=== PATIENT | female | born 2005 | race Caucasian/White ===

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

== ENCOUNTER 2024-10-26 15:11 | Emergency (ER) | payer MEDICAID ==
[~2024-10-26] VITALS: Ht 172.7 cm; Wt 41.7 kg
--- NOTE | 2024-10-26 15:42 | ED.PDOC ---
SOB-HPI HPI Comments HPI: Poor Historian. Drug allergy 18-year-old female presents to the emergency department for evaluation of shortness of breath for two days with associated upper back discomfort and bilateral shoulder discomfort. She tried her inhaler at home without significant improvement. She has been taking NyQuil as well and DayQuil without significant improvement. Denies any fever but she complains of chills. Dad is sick with similar symptoms. Past Medcial History: Asthma Past Surgical History: Denies any No known REVIEW OF SYSTEMS: CONSTITUTIONAL: Denies acute: fever, diaphoresis, HEAD: Denies acute: headache, photophobia Eyes: Denies acute: Double vision, vision loss, eye pain, eye discharge. EARS: Denies acute: tinnitus, hearing loss, ear discharge, ear pain, THROAT: Denies acute: sore throat, swelling, difficulty swallowing , pain with swallowing, change in voice. NECK: Denies acute: neck pain, neck swelling, stiff neck. HEART: Denies acute : chest pain, palpitations, LUNGS: Denies acute: wheezing, hemoptysis ABDOMEN: Denies acute: abdominal pain, Nausea, Vomiting, diarrhea, melena , hematemesis, hematochezia SKIN: Denies acute: rash, redness, lesions, itchiness. EXTREMITIES: Denies acute: calf pain, numbness, tingling, weakness, denies pain in extremity. Denies acute: Low back pain. Neuro: Denies acute: focal neurological deficit, motor or sensory focal neurological deficit, tremors, seizure like activity, confusion, dizziness, change in mental status, loss of bowel or bladder function, cauda equina like symptoms. : Denies acute: dysuria, hematuria, flank pain, increase in urinary frequency. PSYCH: Denies acute: hallucination, suicidal ideation, homicidal ideation. FEMALE: Denies acute: abnormal vaginal bleeding, foul odor, unusual discharge. PHYSICAL EXAM: General: no acute distress, awake and alert. Head: normocephalic, atraumatic. Neck: supple, trachea is midline, no swelling. Throat: Normal phonation. Eyes:, no erythema, no purulent discharge, no proptosis, no icterus. Heart: regular tachycardic, no significant murmur appreciated. Lungs: Mild respiratory distress, Able to speak in full sentences. No wheezing, minimal bilateral rhonchi, no crackles. No stridors Clear to auscultation bilaterally. Abdomen: non tender to palpation, non distended, soft, no guarding, no rebound, + bowel sounds. Neuro: Awake, Alert, oriented to name, self, situation, follows commands GCS=15. Speech is normal. Skin: no petechia, no purpura, no cyanosis, non-pale, not jaundice. Lower extremities: --no - Pitting edema no deformity, no focal swelling, no calf TTP. Makes eye contact. moves all four extremities. Face: no apparent facial droop. Ambulating in the ED independently. No nuchal rigidity, Kernig's sign, Brudzinski's sign, no meningeal signs. Chief Complaint: Flu like Time Seen by MD: 15:31 Reviewed notes: Nurses Notes, Allergies Information Source: Patient Family History Family History: Unknown Social History Smoker: Non-Smoker Alcohol: Denies ETOH Use Drugs: Denies Drug Use Lives In: Home X-Ray, Labs, Meds, VS Vital Signs Date Time Temp Pulse Resp B/P (MAP) Pulse Ox O2 Delivery O2 Flow Rate FiO2 10/26/24 16:16 Room Air* 0 21 10/26/24 16:08 102 17 95 Room Air 10/26/24 16:08 98.1 102 17 109/79 (89) 95 98.1 10/26/24 15:46 19 96 Room Air* 0 21 10/26/24 15:32 98.2 120 19 123/92 (102) 96 Lab Test 10/26/24 17:13 10/26/24 16:18 10/26/24 16:00 10/26/24 15:50 Range/Units Troponin I High Sensitivity < 3 L < 3 L </=34 ng/L Urine Color Light-yellow Yellow Urine Clarity Clear Clear Urine pH 6.0 5.0-9.0 Urine Specific [place] 1.017 1.001-1.035 Urine Protein Trace H Negative Urine Ketones 3+ H Negative Urine Blood Negative Negative /uL Urine Nitrite Negative Negative Urine Bilirubin Negative Negative Urine Urobilinogen Normal Negative mg/dL Urine Leukocyte Esterase Negative Negative /uL Urine RBC 1 0 - 4 /hpf Urine WBC 1 0 - 5 /hpf Urine Squamous Epithelial Cells Few <5 /hpf Urine Bacteria Few H None Seen /hpf Urine Mucus Few None Seen Urine Glucose Normal Normal mg/dL Urine Test Negative Negative White Blood Count 10.9 H 4.4-10.8 10^3/uL Red Blood Count 4.59 4.0-5.20 10^6/uL Hemoglobin 15.2 12.2-16.2 g/dL Hematocrit 43.8 36.0-46.0 % Mean Corpuscular Volume 95.5 80.0-100.0 fL Mean Corpuscular Hemoglobin 33.1 H 28.0-32.0 pg Mean Corpuscular Hemoglobin Concent 34.7 32.0-36.0 g/dL Red Cell Distribution Width 13.2 11.8-14.3 % Platelet Count 259 140-450 10^3/uL Mean Platelet Volume 9.1 6.9-10.8 fL Neutrophils (%) (Auto) 86.5 H 37.0-80.0 % Lymphocytes (%) (Auto) 5.7 L 10.0-50.0 % Monocytes (%) (Auto) 7.5 0.0-12.0 % Eosinophils (%) (Auto) 0.1 0.0-7.0 % Basophils (%) (Auto) 0.2 0.0-2.0 % Neutrophils # (Auto) 9.4 H 1.6-8.6 10 ^3/uL Lymphocytes # (Auto) 0.6 0.4-5.4 10 ^3/uL Monocytes # (Auto) 0.8 0-1.3 10 ^3/uL Eosinophils # (Auto) 0 0-0.8 10 ^3/uL Basophils # (Auto) 0 0-0.2 10 ^3/uL Nucleated Red Blood Cells 0.0 % D-Dimer, Quantitative < 0.19 0.0-0.49 mg/L FEU Sodium Level 137 136-145 mmol/L Potassium Level 4.1 3.5-5.1 mmol/L Chloride Level 105 98-107 mmol/L Carbon Dioxide Level 23 20-31 mmol/L Anion Gap 9 5-15 Blood Urea Nitrogen 7 L 9-23 mg/dL Creatinine 0.89 0.550-1.02 mg/dL Glomerular Filtration Rate Calc 95 >90 mL/min BUN/Creatinine Ratio 7.9 L 10.0-20.0 Serum Glucose 105 74-106 mg/dL Lactic Acid Level 1.9 0.4-2.0 mmol/L Calcium Level 10.4 8.7-10.4 mg/dL Magnesium Level 1.9 1.6-2.6 mg/dL Total Bilirubin 0.3 0.2-1.0 mg/dL Aspartate Amino Transferase (AST) 20 13-40 U/L Alanine Aminotransferase (ALT) 11 7-40 U/L Alkaline Phosphatase 44 L 46-116 U/L B-Type Natriuretic Peptide 5.87 0-100 pg/mL Total Protein 7.9 5.7-8.2 g/dL Albumin 5.0 H 3.2-4.8 g/dL Influenza Type A Antigen Positive Negative Influenza Type B Antigen Negative Negative SARS-CoV-2 Antigen (Rapid) Negative NEGATIVE Current Medications Medications (Trade) Dose Ordered Sig/Kilo Route Start Time Stop Time Status Last Admin Albuterol (Ventolin Medneb) 2.5 mg ONCE ONCE NEB 10/26/24 15:45 10/26/24 15:46 DC 10/26/24 16:16 Ipratropium [place] (Atrovent Medneb) 1 mg ONCE ONCE NEB 10/26/24 15:45 10/26/24 15:46 DC 10/26/24 16:16 Methylprednisolone Sodium Succinate (Solu Medrol) 125 mg ONCE ONCE IV 10/26/24 15:45 10/26/24 15:46 DC 10/26/24 15:58 Sodium Chloride 1,000 ml @ 1,000 mls/hr Q1H ONCE IV 10/26/24 15:45 10/26/24 16:44 DC 10/26/24 15:55 Acetaminophen (Tylenol Tablet) 650 mg ONCE ONCE PO 10/26/24 17:15 10/26/24 17:16 DC 10/26/24 17:12 Departure 1 Departure Time of Disposition: 19:22 Impression: Primary Impression: Influenza A Disposition: 01 HOME / SELF CARE / HOMELESS Condition: Stable Additional Instructions: Additional discharge instructions: You MUST follow-up with your primary care/family doctor in 1 to 2 days. If you are unable to see your primary care/family doctor, please return to our emergency room for re-assessment and re-evaluation in 1 to 2 days. Return to the emergency room here in our facility or to the nearest ER [facility] if your symptoms change or worsen. CONSULTATIONS: you MUST Follow-up for consultation as soon as possible with: -pulmonology in 1-2 days. Please call for appointment You MUST call the consultants office yourself to make an appointment. You may need to arrange that through your insurance and/or your primary/family doctor. If you are unable to see the fashion consultant selling in 1 to 2 days, you must return to our emergency room (or any other ER of your choice) for re-assessment and re- evaluation. Adequate fluid hydration. You are contagious. Please wear a mask. e-Prescriptions Prednisone (Prednisone) 20 Mg Tab 20 MG PO DAILY for 5 Days, #5 TAB Prov: MEAGAN FINNEGAN DO 10/26/24 Oseltamivir Phosphate (Tamiflu) 75 Mg Cap 1 CAP PO BID for 5 Days, #10 CAP Prov: MEAGAN FINNEGAN DO 10/26/24 Discharged With: Self MEAGAN FINNEGAN DO Oct 26, 2024 15:42
[2024-10-26] MEDS: SODIUM CHLORIDE 0.9% 1,000 ML IV ONE (15:55)
[2024-10-26] MEDS: methylPREDNISolone SOD SUCC 125 MG/2 ML VL IV ONE (15:58)
[2024-10-26 16:15] LABS: Basophils # (auto) 0 10 ^3/uL (0-0.2); Basophils % (auto) 0.2 % (0.0-2.0); Eosinophils # (auto) 0 10 ^3/uL (0-0.8); Eosinophils % (auto) 0.1 % (0.0-7.0); Hematocrit 43.8 % (36.0-46.0); Hemoglobin 15.2 g/dL (12.2-16.2); Lymphocytes # (auto) 0.6 10 ^3/uL (0.4-5.4); Lymphocytes % (auto) 5.7 % (10.0-50.0); Mean Corpuscular Hemoglobin 33.1 pg (28.0-32.0); Mean Corpuscular Hgb Conc. 34.7 g/dL (32.0-36.0); Mean Corpuscular Volume 95.5 fL (80.0-100.0); Monocytes # (auto) 0.8 10 ^3/uL (0-1.3); Monocytes % (auto) 7.5 % (0.0-12.0); Neutrophils # (auto) 9.4 10 ^3/uL (1.6-8.6); Neutrophils % (auto) 86.5 % (37.0-80.0); Platelet Count (auto) 259 10^3/uL (140-450); Red Blood Cells 4.59 10^6/uL (4.0-5.20); Red Cell Distribution Width 13.2 % (11.8-14.3); White Blood Cell 10.9 10^3/uL (4.4-10.8)
[2024-10-26] MEDS: IPRATROPIUM BROM 0.5 MG/2.5ML INH SOL NEB ONE (16:16)
[2024-10-26] MEDS: ALBUTEROL SULF 2.5 MG/0.5ML(0.5%) NEB SOLN NEB ONE (16:16)
[2024-10-26 16:36] LABS: Alanine Aminotransferase 11 U/L (7-40); Anion Gap 9 (5-15); Aspartate Aminotransferase 20 U/L (13-40); BUN/Creatinine Ratio 7.9 (10.0-20.0); Bilirubin, Total 0.3 mg/dL (0.2-1.0); Blood Urea Nitrogen 7 mg/dL (9-23); Carbon Dioxide 23 mmol/L (20-31); Chloride 105 mmol/L (98-107); Glucose 105 mg/dL (74-106); Magnesium 1.9 mg/dL (1.6-2.6); Potassium 4.1 mmol/L (3.5-5.1); Sodium 137 mmol/L (136-145); Total Protein 7.9 g/dL (5.7-8.2)
[2024-10-26 16:37] LABS: Alkaline Phosphatase 44 U/L (46-116); Calcium 10.4 mg/dL (8.7-10.4)
[2024-10-26] MEDS: ACETAMINOPHEN 325 MG TAB PO ONE (17:12)
[2024-10-26 17:16] LABS: COVID19 ANTIGEN SOFIA FIA NEGATIVE (NEGATIVE)
[2024-10-26 17:21] LABS: Rapid Influenza A Positive (Negative); Rapid Influenza B Negative (Negative)
[2024-10-26 18:11] LABS: Urine Bacteria FEW /hpf (None Seen); Urine Blood Negative /uL (Negative); Urine Clarity Clear (Clear); Urine Color Light-Yellow (Yellow); Urine Mucus FEW (None Seen); Urine Protein, UAD TRACE (Negative); Urine Specific Gravity 1.017 (1.001-1.035); Urine Squamous Epithelial Cell FEW /hpf (<5); Urine Urobilinogen Normal (Negative); Urine WBC 1 /hpf (0 - 5)
--- NOTE | 2024-10-26 18:32 | DVH ---
EXAMINATION: Chest x-ray 1 view CLINICAL HISTORY: cough/sob/tachy COMPARISON: None FINDINGS: Mild central interstitial prominence. No lobar consolidation identified. No definite pleural effusion or pneumothorax. The cardiomediastinal silhouette appears within normal limits. IMPRESSION: Mild central interstitial prominence is relatively nonspecific but can be seen with edema, reactive a irway changes as well as atypical / viral infection. Please correlate clinically.
[2024-10-26] MEDS ORDERED: OSEL75CA5 PO (19:26)
[2024-10-26] MEDS ORDERED: PRED20TA2 PO (19:27)
[2024-10-26 20:12] VITALS: BP 120/77; PULSE 85; RESP 16; TEMP 98.3; O2SAT 95
== END 2024-10-26 20:14 | disposition home or self-care (01) ==
LOC: ER 15:11
DX: J10.1 Influenza due to other identified influenza virus with other respiratory manifestations (principal); J45.909 Unspecified asthma, uncomplicated; Z20.822 Contact with and (suspected) exposure to COVID-19
CPT/HCPCS: 36415; 71045; 80053; 81001; 81025; 83605; 83735; 83880; 84484; 85025; 85379; 87426; 87804; 94640; 96361; 96374; 99284; J2919; J7030